=== PATIENT | female | born 1960 | race Caucasian/White ===

== ENCOUNTER 2017-08-22 08:29 | Emergency (ER) | payer BC ==
[~2017-08-22] VITALS: Ht 177.8 cm; Wt 75.0 kg
[~2017-08-22 08:29] MED LIST: ARAVA10 MG PO; AUGMENTIN875TAB PO; FLONASE NASAL50 MCG; SYNTHROID100 MCG PO; ZOLOFT50 MG PO; ZYRTEC10 MG PO
[2017-08-22 09:01] LABS: HEMOGLOBIN 12.9 g/dl (12.0-16.0); IMMATURE GRANULOCYTES 0.2 % (0.0-1.0); MEAN CELL VOLUME 96.9 fL CALC (80.0-100.0); MEAN CORPUSCULAR HGB 31.2 pG CALC (26.0-32.0); MEAN CORPUSCULAR HGB CONC 32.3 g/L CALC (32.0-36.0); NEUT# 3.23 thou/uL (2.00-7.15); RED BLOOD COUNT 4.13 mill/uL (4.20-5.60); RED CELL DISTRI WIDTH 15.5 % (11.5-15.5)
[2017-08-22 09:39] LABS: ALBUMIN 4.6 g/dL (3.2-5.0); ALKALINE PHOSPHATASE 105 u/l (38-126); ANION GAP 16 (6-22 (CALC)); BILIRUBIN, TOTAL 0.4 mg/dL (0.0-1.4); BUN 7 mg/dL (7-17); BUN/CREATININE RATIO 9 (12-20 (CALC)); CARBON DIOXIDE 26 mmol/l (22-30); CHLORIDE 106 mmol/l (95-108); CREATININE 0.8 mg/dL (0.5-1.0); GFR > 60 ML/MIN (>=60 (CALC)); GFR FOR AFR.AMER. > 60 ML/MIN (>=60 (CALC)); POTASSIUM 4.3 mmol/l (3.5-5.1); SGOT/AST 24 u/l (14-36); SGPT/ALT 24 u/l (9-52); SODIUM 143 mmol/l (137-146); TOTAL PROTEIN 7.5 g/dL (6.3-8.2)
[2017-08-22] MEDS ORDERED: XELJANZ XR11 MG PO (09:42)
[2017-08-22 09:43] LABS: INTERNATIONAL NORMALIZED RATIO 0.9 RATIO (0.7-1.3); PROTHROMBIN TIME 10.4 SECONDS (9.0-12.5)
[2017-08-22 10:10] VITALS: BP 172/78
== END 2017-08-22 10:10 | disposition short-term general hospital (02) | DRG 87 ==
LOC: ED 08:29
PROVIDERS: Emergency Medicine
DX: S06.5X0A Traumatic subdural hemorrhage without loss of consciousness, initial encounter (principal); R29.810 Facial weakness; R51 Headache; V80.010A Animal-rider injured by fall from or being thrown from horse in noncollision accident, initial encounter; Y93.52 Activity, horseback riding; Y92.009 Unspecified place in unspecified non-institutional (private) residence as the place of occurrence of the external cause

== ENCOUNTER 2022-06-29 10:22 | Emergency (ER) | payer BC ==
[~2022-06-29] VITALS: Ht 177.8 cm; Wt 88.0 kg
[~2022-06-29 10:22] MED LIST changes: +XELJANZ XR11 MG PO
[2022-06-29 11:42] VITALS: BP 156/80
[2022-06-29 12:01] VITALS: BP 135/67
[2022-06-29 12:31] VITALS: BP 140/70
[2022-06-29] MEDS ORDERED: TAM75CAP PO (12:43)
[2022-06-29 13:01] VITALS: BP 128/67
[2022-06-29 13:02] VITALS: BP 128/67
== END 2022-06-29 13:06 | disposition home or self-care (01) | DRG 153 ==
LOC: ED 10:22
DX: J11.1 Influenza due to unidentified influenza virus with other respiratory manifestations (principal); F17.210 Nicotine dependence, cigarettes, uncomplicated; Z20.822 Contact with and (suspected) exposure to COVID-19

== ENCOUNTER 2023-02-06 09:30 | Day surgery (SDC) | payer BC ==
[~2023-02-06] VITALS: Ht 177.8 cm; Wt 82.1 kg
[~2023-02-06 09:30] MED LIST changes: +CONTRAVE PO; +TAM75CAP PO; +TRAMADOL; +XANAX0.25 MG PO
[2023-02-06 12:27] VITALS: BP 171/86
== END 2023-02-06 12:46 | disposition home or self-care (01) | DRG 951 ==
LOC: ENDO 09:30 → ORM 09:45 → ENDO 09:55 → ORM 09:55 → ENDO 12:46
PROVIDERS: ATTEND Surgery
PROC: 0DBH8ZX Excision of Cecum, Via Natural or Artificial Opening Endoscopic, Diagnostic (ICD-10-PCS; principal; 2023-02-06)
DX: Z12.11 Encounter for screening for malignant neoplasm of colon (principal); D12.0 Benign neoplasm of cecum; K64.8 Other hemorrhoids; M06.9 Rheumatoid arthritis, unspecified; F41.9 Anxiety disorder, unspecified; Z86.010 Personal history of colon polyps; Z80.0 Family history of malignant neoplasm of digestive organs